=== PATIENT | male | born 1960 | race Caucasian/White ===

== ENCOUNTER → 2017-09-13 | Outpatient (CLI) | payer OTHER ==
--- NOTE | 2017-09-13 13:54 | RADIOLOGY REPORT (SQ) ---
EXAM DESCRIPTION: U/S NON-OB PELVIS LTD W/O DOP COMPLETED DATE/TIME: 09/13/2017 1:36 pm REASON FOR STUDY: PELVIC AND PERINEAL PAIN (R10.2) R10.2 PELVIC AND PERINEAL PAIN COMPARISON: None. TECHNIQUE: Dynamic and static grayscale images acquired of the localized site of clinical concern an d recorded on PACS. Additional selected color Doppler and spectral images recorded. SITE OF CONCERN: Right groin. LIMITATIONS: None. FINDINGS: No evidence of hernia or mass. IMPRESSION: No hernia identified. TECHNICAL DOCUMENTATION: JOB ID: [id number] [email or web address]- All Rights Reserved Reading location - IP/workstation name: [facility]
== END ==
LOC: RAD 12:45
PROVIDERS: ATTEND Nurse Practitioner
DX: R10.2 Pelvic and perineal pain (principal)
CPT/HCPCS: 76857

== ENCOUNTER 2020-02-20 10:17 | Emergency (ER) | payer OTHER ==
[2020-02-20] MEDS ORDERED: IPRATROPIUM/ALBUTEROL 0.5-2.5 MG/3 ML AMPUL NEB ONE (11:01)
[2020-02-20] MEDS ORDERED: METHYLPREDNISOLONE INJ 125 MG/2 ML SDV IV ONE (11:01)
[2020-02-20] MEDS ORDERED: ALBUTEROL SULFATE 0.083% NEB 2.5 MG/3 ML AMPUL NEB ONE ×2 (11:03→13:08)
--- NOTE | 2020-02-20 11:39 | ER Document Report ---
Entered by RUSSELL JIMENEZ SCRIBE 02/20/20 1100 Acting as scribe for:JESS FLEMING MD ED Respiratory Problem - General Chief Complaint: Breathing Difficulty Stated Complaint: SHORTNESS OF BREATH Time Seen by Provider: 02/20/20 10:53 Primary Care Provider: HOSEA HUNTER FNP [Primary Care Provider] - Follow up as needed Information source: Patient Notes: This 59 year old male patient presents to the emergency department today with complaints of chest tightness which began this morning. Patient is a former smoker, stopped in 2011, but has known COPD and is prescribed albuterol inhalers and Anoro Ellipta. He reports that this morning he tried both inhalers and they did not seem to help. He mentions that he was tested for COVID 2 days ago just as a general precaution as his daughter works in the healthcare field and had some sniffles, and he was not feeling well. He has not yet heard from the health department about the results of the testing. TRAVEL OUTSIDE OF THE [place] IN LAST 30 DAYS: No - Related Data Allergies/Adverse Reactions: aspirin [Aspirin] Allergy (Unknown, Verified 02/20/20 11:44) Penicillins Allergy (Unknown, Verified 02/20/20 11:44) Home Medications: albuterol Past Medical History - General Information source: Patient - Social History Smoking Status: Former Smoker - quit in 2011 Frequency of alcohol use: None Drug Abuse: None Lives with: Family Family History: Reviewed & Not Pertinent, Hypertension - Past Medical History Cardiac Medical History: Reports: Hx Hypertension Surgical Hx: Negative - Immunizations Hx Diphtheria, Pertussis, Tetanus Vaccination: No Review of Systems - Review of Systems Constitutional: No symptoms reported EENT: No symptoms reported Cardiovascular: No symptoms reported Respiratory: See HPI, Short of breath, Wheezing Gastrointestinal: No symptoms reported Genitourinary: No symptoms reported Male Genitourinary: No symptoms reported Musculoskeletal: No symptoms reported Skin: No symptoms reported Hematologic/Lymphatic: No symptoms reported Neurological/Psychological: No symptoms reported -: Yes All other systems reviewed and negative Physical Exam - Vital signs Vitals: Temp Pulse Resp BP Pulse Ox 98.1 F 79 20 149/81 H 94 02/20/20 10:25 02/20/20 10:25 02/20/20 10:25 02/20/20 10:25 02/20/20 10:25 - Notes Notes: Physical Exam: General: Alert, speaking in 3-4 word sentences, appears short of breath. HEENT: Normocephalic. Atraumatic. PERRL. Extraocular movements intact. Oropharynx clear. Neck: Supple. Non-tender. Respiratory: Mild respiratory distress. Tight wheezing bilaterally. Retractions. Speaking in 3-4 sentences. Cardiovascular: Regular rate and rhythm. Abdominal: Normal Inspection. Non-tender. No distension. Normal Bowel Sounds. Back: No gross abnormalities. Extremities: Moves all four extremities. Upper extremities: Normal inspection. Normal ROM. Lower extremities: Normal inspection. No edema. Normal ROM. Neurological: Normal cognition. AAOx4. Normal speech. Psychological: Normal affect. Normal Mood. Skin: Warm. Dry. Normal color. Course - Re-evaluation Re-evalutation: 02/20/20 14:32 This time the patient states his breathing is much better. His lungs do sound much better. He states he still has a pressure sensation in his upper sternum that he notices if he tries to breathe in but it is much better than it was earlier. He also reports that he has an appointment with Dr. Acosta next month. Due to the patient has complained of the pressure sensation is upper chest, fact that he is middle-aged, hypertension, hyperlipidemia, cigarette smoker, will get an EKG. 02/20/20 15:02 EKG was completely normal. - Vital Signs Vital signs: Temp Pulse Resp BP Pulse Ox 98.1 F 79 20 149/81 H 94 02/20/20 10:25 02/20/20 10:25 02/20/20 10:25 02/20/20 10:25 02/20/20 10:25 - Laboratory Result Diagrams: 02/20/20 11:56 02/20/20 11:56 Laboratory results interpreted by me: 02/20/20 02/20/20 11:56 11:56 MCHC 36.2 H BUN 6 L - Diagnostic Test Radiology reviewed: Image reviewed - Chest x-ray shows COPD without infiltrates. - EKG Interpretation by Me EKG shows normal: Sinus rhythm, [place], Intervals, QRS Complexes, ST-T Waves Rate: Normal - 74 Rhythm: NSR Discharge - Discharge Clinical Impression: COPD exacerbation Condition: Stable Disposition: HOME, SELF-CARE Additional Instructions: You appear to have an exacerbation of your COPD. This is most likely viral, as your white blood cell count was not elevated, your chest x-ray did not show pneumonias, and you are not coughing up thick colored sputum. Start the prednisone as prescribed tomorrow--you were given today's dose here in the emergency room. Drink plenty of fluids and get plenty of rest. Use your inhaler as needed for wheezing. Follow-up with your primary care provider or Dr. Acosta next week if not improving. RETURN TO THE EMERGENCY ROOM IF ANY NEW OR WORSENING SYMPTOMS. Prescriptions: Prednisone [Deltasone 20 mg Tablet] 20 mg PO BID #10 tablet Referrals: HOSEA HUNTER FNP [Primary Care Provider] - Follow up as needed I personally performed the services described in the documentation, reviewed and edited the documentation which was dictated to the scribe in my presence, and it accurately records my words and actions.
[2020-02-20] MEDS: MAGNESIUM SULFATE/D5W 1 GM/100 ML RTUPB IV SCH ×2 (12:01→12:12)
--- NOTE | 2020-02-20 12:01 | RADIOLOGY REPORT (SQ) ---
EXAM DESCRIPTION: CHEST SINGLE VIEW IMAGES COMPLETED DATE/TIME: 02/20/2020 11:30 am REASON FOR STUDY: COPD exacerbation COMPARISON: 02/12/2013 EXAM PARAMETERS: NUMBER OF VIEWS: One view. TECHNIQUE: Single frontal radiographic view of the chest acquired. RADIATION DOSE: NA LIMITATIONS: None. FINDINGS: LUNGS AND PLEURA: Mild hyperexpansion. No consolidation or effusions. No pneumothorax. MEDIASTINUM AND HILAR STRUCTURES: No masses. Contour normal. HEART AND VASCULAR STRUCTURES: Heart normal in size. Normal vasculature. BONES: No acute findings. HARDWARE: None in the chest. OTHER: No other significant finding. IMPRESSION: Mild hyperexpansion otherwise negative chest. TECHNICAL DOCUMENTATION: JOB ID: [id number] [employer]- All Rights Reserved Reading location - IP/workstation name: [email or web address]
[2020-02-20 12:15] LABS: ABSOLUTE EOSINOPHILS # (AUTO) 0.3 10^3/uL (0.0-0.6); ABSOLUTE LYMPHOCYTES (AUTO) 0.7 10^3/uL (0.5-4.7); ABSOLUTE MONOCYTES (AUTO) 0.5 10^3/uL (0.1-1.4); ABSOLUTE NEUT (AUTO) 3.1 10^3/uL (1.7-8.2); BASOPHILS % (AUTO) 0.4 % (0-2); HEMATOCRIT 38.3 % (37.9-51.0); HEMOGLOBIN 13.9 g/dL (13.5-17.0); LYMPHOCYTES % (AUTO) 15.1 % (13-45); MEAN CORPUSCULAR HEMOGLOBIN 31.1 pg (27.0-33.4); MEAN CORPUSCULAR HGB CONC 36.2 g/dL (32.0-36.0); MEAN CORPUSCULAR VOLUME 86 fl (80-97); MONOCYTES % (AUTO) 10.1 % (3-13); PLATELET COUNT 206 10^3/uL (150-450); RED BLOOD COUNT 4.46 10^6/uL (4.35-5.55); RED CELL DISTRIBUTION WIDTH 13.6 % (11.5-14.0); SEGMENTED NEUTROPHILS % (AUTO) 68.4 % (42-78); TOTAL CELLS COUNTED % (AUTO) 100 %; WHITE BLOOD COUNT 4.5 10^3/uL (4.0-10.5)
[2020-02-20 12:33] LABS: ALBUMIN 4.5 g/dL (3.5-5.0); ALKALINE PHOSPHATASE 61 U/L (38-126); ANION GAP 10 (5-19); ASPARTATE AMINO TRANSFERASE 31 U/L (17-59); BILIRUBIN,DIRECT 0.3 mg/dL (0.0-0.4); BILIRUBIN,TOTAL 0.4 mg/dL (0.2-1.3); BLOOD UREA NITROGEN 6 mg/dL (7-20); CALCIUM 9.3 mg/dL (8.4-10.2); CARBON DIOXIDE 26 mmol/L (22-30); CHLORIDE 105 mmol/L (98-107); GLUCOSE 104 mg/dL (75-110); POTASSIUM 4.1 mmol/L (3.6-5.0); TOTAL PROTEIN 7.1 g/dL (6.3-8.2)
[2020-02-20] MEDS ORDERED: PREDNISONE 20 MG TABLET PO ONE (13:41)
[2020-02-20 15:28] VITALS: BP 143/78
--- NOTE | 2020-02-22 18:13 | EKG REPORT ---
SEVERITY:- NORMAL ECG - SINUS RHYTHM : Confirmed by: Sergey Murphy 22-Feb-2020 18:12:55
== END 2020-02-20 15:29 | disposition home or self-care (01) ==
LOC: ER 10:17
DX: J44.1 Chronic obstructive pulmonary disease with (acute) exacerbation (principal); I10 Essential (primary) hypertension; Z88.6 Allergy status to analgesic agent; Z88.0 Allergy status to penicillin
CPT/HCPCS: 94640 ×2; 99285; 96375; 96365; 36415; 85025; 80053; 71045; J2930; J3475; J7512; J7613; 93005; 93010